=== PATIENT | female | born 1975 | race Caucasian/White ===

== ENCOUNTER 2017-12-19 19:05 | Emergency (ER) | payer SELFPAY ==
[2017-12-19] MEDS ORDERED: IBUPROFEN 600 MG TABLET ONE (19:36)
[2017-12-19] MEDS: IBUPROFEN 600 MG TABLET PO ONE (19:39)
--- NOTE | 2017-12-19 19:39 | ERNOTE ---
Back Pain ER HPI Presenting Symptoms: injury/pain to back Time Seen by Provider: 12/19/17 19:22 Source: patient Exam Limitations: no limitations Immunizations: IMMUNIZATION HX Immunizations Up to Date Yes History of Influenza Vaccine No Hx Pneumococcal Vaccination No Allergies/Adverse Reactions: Allergies No Known Allergies Allergy (Verified 10/02/16 16:22) Home Medications: HOME MEDICATIONS Ibuprofen [Motrin] 600 mg PO Q6H PRN #40 tab 12/19/17 [Last Taken Unknown] Narrative: Patient states that she has had back pain for about three days. She denies any injury but moved into a new apartment and has been moving a lot of boxes. It mainly hurts when she stands for a while, at times the pain radiates down her right leg.She has been taking naproxen with relieve , none today Date (Duration): 12/16/17 Timing: Reports: intermittent Quality/Severity: Reports: moderate, sharpness Location of pain: Reports: lower back, radiating to rt thigh/leg Activities at Onset: Reports: none Recent Injury?: Reports: possibly Possible Precipitating Factor: Reports: lifting Modifying Factors - (Improves): Reports: other - rest, medications Modifying Factors - (Worsens): Reports: upright position Associated Symptoms: Denies: fever/chills, constipation/incontinence, nausea/ vomiting, problems urinating, lightheadedness, numbess/weakness in legs Prior Treament: Reports: similar symptoms before. Denies: recently seen Review of Systems - Review of Systems Constitutional: Absent: recent illness, fever ENT: Absent: nose congestion, sore throat Respiratory: Absent: shortness of breath, cough Cardiology: Absent: chest pain Gastrointestinal/Abdominal: Absent: nausea, vomiting, abdominal pain Genitourinary: Present: no symptoms reported Musculoskeletal: Present: See HPI Neurological: Absent: headache, weakness, numbness - Patient's Past Medical History Patient History - Medical: Anxiety, Depression, Migraines, Other Patient History - Cardiac/Respiratory: No pertinent hx Patient History - Cancer: No Hx of Cancer Patient History - Surgical Procedures: Tubal Ligation Patient History - Other: None LMP (females 10-50): this week - Social History Living Situations: alone Abuse History: No History of abuse Psych History: Hx of Anxiety, Hx of Depression Smoking Status: Current every day smoker Have you smoked in the past 12 months: Yes Do you dip or chew tobacco: No Alcohol Use: occasionally Drug Use: marijuana - Immunizations Immunizations Up to Date: Yes Hx Pneumococcal Vaccination: No History of Influenza Vaccine: No Physical Exam - Physical Exam General Appearance: Present: wd/wn, alert, no apparent distress Head Exam: Present: normal inspection Respiratory: Present: no respiratory distress, normal breath sounds, lungs clear Cardiovascular/Chest: Present: regular rate, rhythm, no murmur Back Exam: Present: normal inspection, normal range of motion, no vertebral tenderness Extremity Exam: Present: normal inspection, no edema, other - no pain on straight leg raise Neurological Exam: Present: alert, oriented, normal mood/affect, no motor/ sensory deficits DTR: N=norm/NB=norm/brisk/A=abs/DD=dull/dimin/HC=hyperactive: Knee (R): Normal, Knee (L): Normal, Ankle (R): Normal, Ankle (L): Normal Skin Exam: Present: normal color, warm/dry ED Progress - Vital Signs Patient's Vital Signs:: I have reviewed the patient's vital signs. Vital Signs: Vital Signs 12/19/17 19:08 Temperature 36.1 C L Pulse Rate 60 Respiratory 16 Rate Blood Pressure 138/83 O2 Sat by Pulse 100 Oximetry - Progress/Reassessment Chief Complaint: Back Pain Departure Clinical Impression: Sciatica Qualifiers: Laterality: right Qualified Code(s): M54.31 - Sciatica, right side - Departure Disposition: Home self-care Condition: Good Instructions: Sciatica With Rehab-SportsMed Additional Instructions: if your pain persists call the clinic for follow up Referrals: Iker Workman MD [Staff Physician] - Prescriptions: Ibuprofen [Motrin] 600 mg PO Q6H PRN #40 tab PRN Reason: Pain
[2017-12-21 08:28] VITALS: BP 138/83
== END 2017-12-19 19:41 | disposition home or self-care (01) ==
LOC: ER 19:05
DX: M54.31 Sciatica, right side (principal); F17.200 Nicotine dependence, unspecified, uncomplicated

== ENCOUNTER 2020-11-22 01:33 | Observation (INO) ==
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
[2020-11-22 02:35] LABS: Hematocrit 43.4 % (37.0-47.0); Hemoglobin 14.2 gm/dL (12.5-16.0); Mean Cell Volume 90.6 fl (78-100); Mean Corpuscular Hemoglobin 29.6 pg (27-31); Mean Corpuscular Hgb Conc 32.7 g/dl (32-36); Mean Platelet Volume 9.8 fl (8-12.5); Neutrophil # 4.6 K/mm3 (1.3-6.0); Neutrophil % 58.1 % (42-75.0); Platelet Count 219 K/mm3 (150-450); Red Blood Count 4.79 M/mm3 (4.2-5.4); Red Cell Distribution Width 13.3 % (11.5-14.0)
[2020-11-22 03:01] LABS: Anion Gap 11.1 mmol/L (6.8-13.8); BUN/Creatinine Ratio 23.2 (9.0-21.6); Bilirubin, Total 0.5 mg/dL (0.0-1.1); Ca. Corrected For Albumin 9.2 mg/dL (8.4-10.2); Calcium * 8.7 mg/dL (7.9-10.9); Potassium 4.1 mmol/L (3.4-4.6); Total Protein 6.4 gm/dL (6.2-8.2)
[2020-11-22] MEDS ORDERED: ASPIRIN 81 MG TAB.CHEW PO ONE (04:56)
[2020-11-22] MEDS ORDERED: FUROSEMIDE 10 MG/ML VIAL ONE (05:05)
[2020-11-22] MEDS ORDERED: ONDANSETRON HCL/PF 2 MG/ML VIAL IV ONE (06:53)
[2020-11-22] MEDS: FUROSEMIDE 10 MG/ML VIAL IV SCH (08:48)
[2020-11-22] MEDS ORDERED: FUROSEMIDE 10 MG/ML VIAL IV SCH (09:00)
[2020-11-22] MEDS: DILTIAZEM HCL 30 MG TABLET PO SCH ×2 (11:04→17:05)
[2020-11-22] MEDS: ENOXAPARIN SODIUM 40 MG/0.4 ML SYRG SC SCH (11:04)
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
[2020-11-22] MEDS ORDERED: LORazepam 1 MG TABLET PO PRN (13:36)
[2020-11-23] MEDS: DILTIAZEM HCL 30 MG TABLET PO SCH ×2 (01:23→09:05)
[2020-11-23] MEDS: FUROSEMIDE 10 MG/ML VIAL IV SCH (08:12)
[2020-11-23] MEDS: ENOXAPARIN SODIUM 40 MG/0.4 ML SYRG SC SCH (09:05)
[2020-11-23] MEDS ORDERED: FUROSEMIDE 10 MG/ML VIAL IV ONE (09:56)
[2020-11-23] MEDS: METOPROLOL TARTRATE 50 MG TABLET PO SCH ×2 (10:26→22:05)
[2020-11-23] MEDS ORDERED: ACETAMINOPHEN 500 MG TABLET PO PRN (19:22)
--- NOTE | 2020-11-23 21:58 | PN ---
Subjective - Date and Time Seen Date: 11/23/20 Time: 09:30 Subjective Narrative: Jannie reports continued shortness of breath, her heart rate will increase to above 120 at times at rest and frequently with activity. She has been on cardizem but does not appear to be controlling rate. She reports swelling in legs is better. Objective - Vitals Vitals: Last Vital Signs Temp 36.4 C 11/23/20 19:14 Pulse 79 11/23/20 19:14 Resp 20 11/23/20 19:14 BP 120/75 11/23/20 19:14 Pulse Ox 96 11/23/20 19:14 - Exam Constitutional: Present: Alert, Oriented x3, Cooperative ENT Exam: Present: hearing grossly normal Respiratory: Present: lungs clear, normal breath sounds, respiratory distress Cardiovascular/Chest: Present: no murmur, tachycardia Abdomen: Present: Normal bowel sounds, soft, nontender, nondistended Assessment/Plan Plan Narrative: Heart rate and breathing are uncontrolled. Unable to discharge to home today. Will start metoprolol 50mg BID. Will give lasix 40mg IV. Cardizem is not cont rolling heart rate on its own, ill plan to discontinue in favor of metoprolol. If breathing and heart rate are better controlled tomorrow will plan to discharge to home. - Problems/Diagnosis (1) Acute on chronic diastolic CHF (congestive heart failure) Problem: Acute (2) Atrial fibrillation with RVR Problem: Acute
[2020-11-24 06:39] VITALS: BP 120/86
[2020-11-24] MEDS: ENOXAPARIN SODIUM 40 MG/0.4 ML SYRG SC SCH (09:18)
[2020-11-24] MEDS: METOPROLOL TARTRATE 50 MG TABLET PO SCH (09:19)
--- NOTE | 2020-11-24 09:26 | DS ---
(1) Acute on chronic diastolic CHF (congestive heart failure) Problem: Acute (2) Atrial fibrillation with RVR Problem: Acute Date of Discharge:: 11/24/20 Hospital Course: Jannie is a 45 yo female admitted for atrial fibrillation with RVR and acute on chronic diastolic CHF. She was diuresed and given diltiazem initially for heart rate control. This helped but she was still in the lower 100s and with her CHF I preferred her going home with a beta ramos. She was switched to metoprolol and this controlled her heart rate and blood pressure better. I think it might have an added benefit of helping with some control of her anxiety which I believe is also a contributor to her shortness of breath. Her heart rate has been well controlled over the last 12 hours and she will be discharged to home on metoprolol. Procedures Performed: none Results and Findings: Lab Pending Results 11/22/20 02:30: WBC 8.0, RBC 4.79, Hgb 14.2, Hct 43.4, MCV 90.6, MCH 29.6, MCHC 32.7, RDW 13.3, Plt Count 219, MPV 9.8, Immature Gran % (Auto) 0.30, Immature Gran # (Auto) 0.02, Neutrophils % 58.1, Lymphocytes % 32.5, Monocytes % 6.2, Eosinophils % 2.3, Basophils % 0.6, Nucleated RBC % 0.0, Neutrophils # 4.6, Lymphocytes # 2.58, Monocytes # 0.5, Eosinophils # 0.2, Absolute Basophils 0.1 11/22/20 02:30: Sodium 139, Plasma Sodium 139, Potassium 4.1, Chloride 106, Carbon Dioxide 26.0, Anion Gap 11.1, BUN 23, Creatinine 0.99, Est GFR (Non-Af Amer) 64, BUN/Creatinine Ratio 23.2 H, Random Glucose 91, Calcium 8.7, Calcium Adj for Albumin 9.2, Total Bilirubin 0.5, AST 27, ALT 26, Alkaline Phosphatase 61, B-Natriuretic Peptide 6292 H, Total Protein 6.4, Albumin 3.0 L 11/22/20 02:30: D-Dimer 1.38 H 11/22/20 03:22: SARS-CoV-2 (PCR) Not detected Discharge Location: Home Disposition: Home self-care Condition: Good Discharge Activity: Activity as tolerated Discharge Diet: General/regular food Referrals: Jordan Lyn MD [Primary Care Provider] - One Week Problem Oriented Discharge Instructions to Patient/Family: Atrial Fibrillation, [id number] Prescriptions (Any new or edited meds): Metoprolol Tartrate [Lopressor] 50 mg PO Q12H #60 tab Transmission Status: Pending to [facility] Complete Home Medications List: Complete Home Medication List: naproxen 500 mg tablet 500 mg PO BID PRN #60 tab 09/18/20 dextroamphetamine-amphetamine ER 30 mg 24hr capsule,extend release 30 mg PO BID #60 cap 10/18/20 lorazepam 1 mg tablet 1 mg PO TID PRN #60 tab 10/28/20 Acetaminophen [Tylenol] 1,000 mg PO Q6H PRN tablet 11/24/20 Metoprolol Tartrate [Lopressor] 50 mg PO Q12H #60 tab 11/24/20 Forms: Patient Portal Registration
== END 2020-11-24 11:00 | disposition home or self-care (01) ==
LOC: ER 01:33 → MS 01:33
PROVIDERS: ADMIT Family Medicine; ATTEND Family Medicine

== ENCOUNTER 2020-11-24 17:36 | Observation (INO) ==
[2020-11-24 17:58] LABS: Hematocrit 50.3 % (37.0-47.0); Hemoglobin 16.5 gm/dL (12.5-16.0); Mean Cell Volume 91.1 fl (78-100); Mean Corpuscular Hemoglobin 29.9 pg (27-31); Mean Corpuscular Hgb Conc 32.8 g/dl (32-36); Mean Platelet Volume 9.3 fl (8-12.5); Neutrophil # 4.4 K/mm3 (1.3-6.0); Neutrophil % 51.8 % (42-75.0); Platelet Count 309 K/mm3 (150-450); Red Blood Count 5.52 M/mm3 (4.2-5.4); Red Cell Distribution Width 13.1 % (11.5-14.0); White Blood Count 8.5 K/mm3 (4.0-10.5)
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
[2020-11-24 18:08] LABS: Prothrombin Time (Patient) 11.9 Seconds (9.1-10.7)
[2020-11-24 18:11] LABS: INR 1.21 INR (0.92-1.08); Partial Thrombolplastin Time 24.6 Seconds (24-32)
[2020-11-24 18:19] LABS: Albumin * 3.3 gm/dl (3.4-5.0); Anion Gap 8.6 mmol/L (6.8-13.8); BUN/Creatinine Ratio 21.8 (9.0-21.6); Bilirubin, Total 0.8 mg/dL (0.0-1.1); Ca. Corrected For Albumin 9.7 mg/dL (8.4-10.2); Calcium * 9.5 mg/dL (7.9-10.9); Carbon Dioxide 30.7 mmol/L (24-32.6); Potassium 4.3 mmol/L (3.4-4.6); Troponin I 0.095 ng/mL (0.00-0.10)
[2020-11-24] MEDS ORDERED: FUROSEMIDE 10 MG/ML VIAL IV ONE (18:25)
[2020-11-24 19:24] LABS: Urine Bilirubin Negative (NEGATIVE); Urine Blood Negative /ul (NEGATIVE); Urine Ketone Negative (NEGATIVE); Urine Nitrite Negative (NEGATIVE); Urine Protein Negative (NEGATIVE); Urine Urobilinogen Normal (NORMAL); Urine pH 6.5 pH (5.0-7.0)
[2020-11-24 19:42] LABS: Cocaine Ur Negative (NEGATIVE); Urine Barbiturate Negative (NEGATIVE); Urine Benzodiazepines Negative (NEGATIVE); Urine Opiates Negative (NEGATIVE); Urine PCP Negative (NEGATIVE)
[2020-11-24 19:44] LABS: Urine Appearance Clear (CLEAR); Urine Bacteria TRACE; Urine Color Yellow; Urine RBC None Seen /hpf (0-5); Urine THC Positive (NEGATIVE); Urine WBC None Seen /hpf (0-5)
[2020-11-24] MEDS ORDERED: METOPROLOL TARTRATE 25 MG TABLET PO ONE (20:23)
[2020-11-24] MEDS ORDERED: ENOXAPARIN SODIUM 100 MG/ML SYRG SC SCH (21:30)
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
[2020-11-25 08:12] LABS: Anion Gap 13.3 mmol/L (6.8-13.8); BUN/Creatinine Ratio 20.3 (9.0-21.6); Calcium * 9.3 mg/dL (7.9-10.9); Carbon Dioxide 26.4 mmol/L (24-32.6); Potassium 4.7 mmol/L (3.4-4.6)
[2020-11-25] MEDS ORDERED: FUROSEMIDE 40 MG TABLET PO SCH (09:00)
[2020-11-25] MEDS ORDERED: METOPROLOL TARTRATE 25 MG TABLET PO SCH (09:00)
[2020-11-25] MEDS ORDERED: APIXABAN 5 MG TABLET PO SCH (09:00)
--- NOTE | 2020-11-25 14:48 | DS ---
(1) Acute CHF Diagnosis(s): new diagnosis. plan is monitoring and doing echo. continue lasix for now. Problem: Resolved Qualifiers: Heart failure type: unspecified Qualified Code(s): I50.9 - Heart failure, unspecified (2) Atrial fibrillation with RVR Diagnosis(s): rate is better controlled. new diagnosis. will continue metoprolol and eliquis. will obtain echo. Problem: Acute (3) ADHD, predominantly inattentive type Problem: Chronic (4) Amphetamine abuse Problem: Resolved (5) Generalized anxiety disorder Problem: Chronic (6) Hepatitis C virus infection Diagnosis(s): has never been treated. [facility] won't treat her as long as she is using marijuana, and she won't stop marijuana. Problem: Chronic Qualifiers: Viral hepatitis chronicity: chronic Hepatic coma status: without hepatic coma Qualified Code(s): B18.2 - Chronic viral hepatitis C (7) Homeless Problem: Chronic Date of Discharge:: 11/25/20 Hospital Course: The patient is a 45 year old female who presented to our ER last evening via POV for dyspnea which had been present for 4 days with intolerable symptoms the afternoon of admission. There were associated symptoms of fatigue. The patient reported generalized body aches. There were no alleviating factors. Today she is much less short of breath with activity. Previous treatments have included: prescribed medication. The past medical history includes: AFib (new diagnosis), CHF(new diagnosis, no echo results available), anxiety, depression, Hepatitis C (still untreated), ADHD and substance abuse (methamphetamine). The social history is positive for current tobacco use and homelessness. The patient has had no known ill contacts. She was covid negative on admission. Patient was admitted to the hospital earlier yesterday, but returned last evening because of SOB and weakness. Her ventricular rate had been elevated, but is better now with metoprolol. Rate and BP appear stable. She has diuresed a large amount since yesterday with IV Lasix. Her lower extremity edema has resolved. She is still in atrial fibrillation with controlled ventricular rate. Following her first ER visit and discharge she arrived home and upon ambulation into the house became increasingly short of breath, which became intolerable, so she returned to the ER. She received scheduled medications yesterday morning prior to discharge from her first hospital visit, but did not picking supervisor prescriptions at discharge due to pharmacy being closed. Patient was noted on previous admission to have limited financial capability. She is eating all right today and has now been up and around without apparent difficulty. Procedures Performed: none Results and Findings: Lab Pending Results 11/24/20 17:51: WBC 8.5, RBC 5.52 H, Hgb 16.5 H, Hct 50.3 H, MCV 91.1, MCH 29.9, MCHC 32.8, RDW 13.1, Plt Count 309, MPV 9.3, Immature Gran % (Auto) 0.10, Immature Gran # (Auto) 0.01, Neutrophils % 51.8, Lymphocytes % 38.8, Monocytes % 6.9, Eosinophils % 1.6, Basophils % 0.8, Nucleated RBC % 0.0, Neutrophils # 4.4, Lymphocytes # 3.31, Monocytes # 0.6, Eosinophils # 0.1, Absolute Basophils 0.1 11/24/20 17:51: Sodium 141, Plasma Sodium 140, Potassium 4.3, Chloride 106, Carbon Dioxide 30.7, Anion Gap 8.6, BUN 26 H, Creatinine 1.19, Est GFR (Non-Af Amer) 52 L, BUN/Creatinine Ratio 21.8 H, Random Glucose 45 L D, Calcium 9.5, Calcium Adj for Albumin 9.7, Total Bilirubin 0.8, AST 24, ALT 29, Alkaline Phosphatase 65, Troponin I 0.095, B-Natriuretic Peptide 29464 H, Total Protein 7.0, Albumin 3.3 L 11/24/20 17:51: D-Dimer 1.00 H 11/24/20 17:51: PT 11.9 H, INR (Anticoag Therapy) 1.21 H, PTT ([place]) 24.6 11/24/20 17:51: TSH 3.722 11/24/20 17:58: Lactic Acid, Venous 1.0 11/24/20 18:30: pCO2 30.8 L, pO2 30.7 L*, HCO3 19.8 L, Total CO2 20.7, Base Excess -3.1 L, ABG pH 7.43, ABG O2 Sat (Measured) 61.2 L 11/24/20 18:59: Urine Color Yellow, Urine Appearance Clear, Urine pH 6.5, Ur Specific [place] 1.020, Urine Protein Negative, Urine Glucose (UA) Negative, Urine Ketones Negative, Urine Blood Negative, Urine Nitrate Negative, Urine Bilirubin Negative, Urine Urobilinogen Normal, Ur Leukocyte Esterase Negative, Urine RBC None seen, Urine WBC None seen, Ur Epithelial Cells 0-5, Urine Bacteria Trace, Urine Culture Comments No culture indicated 11/24/20 18:59: Urine Opiates Screen Negative, Barbiturate Screen Negative, Ur Phencyclidine Scrn Negative, Urine Amphetamine Positive H, U Benzodiazepines Scrn Negative, Urine Cocaine Screen Negative, Urine Marijuana (THC) Positive H 11/24/20 20:52: SARS-CoV-2 (PCR) Not detected 11/25/20 07:34: Sodium 140, Plasma Sodium 141, Potassium 4.7 H, Chloride 105, Carbon Dioxide 26.4, Anion Gap 13.3, BUN 24 H, Creatinine 1.18, Est GFR (Non-Af Amer) 52 L, BUN/Creatinine Ratio 20.3, Random Glucose 137 H D, Calcium 9.3 Discharge Location: Home Disposition: Home self-care Condition: Good Discharge Activity: Activity as tolerated Discharge Diet: Low salt Referrals: Jordan Lyn MD [Primary Care Provider] - Additional Patient Instructions (free text): call for problems or questions. BMP in 4 days. echo sometime this week. see Dr. Moore in the office within one week. Complete Home Medications List: Complete Home Medication List: Acetaminophen [Tylenol] 1,000 mg PO Q6H PRN tab 11/24/20 Apixaban [Eliquis] 5 mg PO BID #60 tab 11/25/20 Furosemide [Lasix] 40 mg PO DAILY #30 tab 11/25/20 Metoprolol Tartrate [Lopressor] 25 mg PO BID #60 tab 11/25/20
[2020-11-25 18:07] VITALS: BP 129/82
== END 2020-11-25 17:22 | disposition home or self-care (01) ==
LOC: MS 17:36 → ER 17:36 → MS 22:20
PROVIDERS: ADMIT Family Medicine; ATTEND Family Medicine